=== PATIENT | female | born 1960 | race Caucasian/White ===

== ENCOUNTER → 2016-09-29 | Outpatient (REF) | payer OTHER ==
[2016-09-29 11:49] LABS: BASO % 0.3 % (0.0-1.0); EOS # 0.2 K/mm3 (0.0-0.50); EOS % 3.1 % (0.0-3.0); LARGE UNSTAINED CELL # 0.1 K/mm3 (0.0-0.4); LARGE UNSTAINED CELL % 2.2 % (0.0-4.0); LYMPH # 1.9 K/mm3 (1.5-4.5); LYMPH % 28.2 % (24.0-44.0); MEAN CORPUSCULAR HEMOGLOBIN 34.3 pg (27.0-33.0); MEAN CORPUSCULAR HGB CONC 35.2 g/dl (32.0-36.5); MEAN CORPUSCULAR VOLUME 97.4 fl (80.0-96.0); MONO # 0.5 K/mm3 (0.0-0.8); MONO % 7.1 % (0.0-5.0); NEUTROPHILS # 3.7 K/mm3 (1.8-7.7); NEUTROPHILS % 59.1 % (36.0-66.0); PLATELET COUNT, AUTOMATED 285 k/mm3 (150-450); RED CELL DISTRIBUTION WIDTH 12.2 % (11.5-14.5); WHITE BLOOD COUNT 6.3 K/mm3 (4.0-10.0)
[2016-09-29 11:51] LABS: TOTAL PROTEIN 7.3 GM/DL (6.4-8.2); VITAMIN B12 LEVEL 670 PG/ML (247-911)
[2016-09-29 12:06] LABS: ALBUMIN 3.5 GM/DL (3.2-5.2); ALBUMIN/GLOBULIN RATIO 0.95 (1.00-1.93); ALKALINE PHOSPHATASE 127 U/L (45-117); ALT/SGPT 27 U/L (12-78); ANION GAP 7 MEQ/L (8-16); AST/SGOT 17 U/L (15-37); BILIRUBIN,TOTAL 0.4 MG/DL (0.2-1.0); BLOOD UREA NITROGEN 17 MG/DL (7-18); CALCIUM LEVEL 9.5 MG/DL (8.5-10.1); CARBON DIOXIDE LEVEL 30 MEQ/L (21-32); CHLORIDE LEVEL 104 MEQ/L (98-107); CHOLESTEROL LEVEL 237 MG/DL (<200); CREATININE FOR GFR 0.66 MG/DL (0.55-1.02); GLOMERULAR FILTRATION RATE > 60.0 (>51); GLUCOSE, FASTING 95 MG/DL (70-105); POTASSIUM SERUM 3.8 MEQ/L (3.5-5.1); SODIUM LEVEL 141 MEQ/L (136-145); TOTAL PROTEIN 7.2 GM/DL (6.4-8.2); TRIGLYCERIDES LEVEL 132 MG/DL (<150)
[2016-10-02 09:52] LABS: ALBUMIN 4.26 GM/DL (3.29-5.55); ALBUMIN % 58.3 % (55.8-66.1); GAMMA GLOBULIN % 13.9 % (11.1-18.8)
== END ==
LOC: M SFHCCLAY 07:19
PROVIDERS: ATTEND Family Medicine
DX: I10 Essential (primary) hypertension (principal); D75.89 Other specified diseases of blood and blood-forming organs

== ENCOUNTER → 2017-01-26 | Outpatient (REF) | payer OTHER | LOC: M SFHCWAGY 15:10 | PROVIDERS: ATTEND Nurse Practitioner Women's Health | DX: Z12.4 Encounter for screening for malignant neoplasm of cervix (principal) ==

== ENCOUNTER → 2017-01-26 | Outpatient (CLI) | payer BC ==
--- NOTE | 2017-01-26 16:42 | REPMRS ---
Patient History The patient states she had a clinical breast exam in 01/28 Patient is postmenopausal and is nulliparous. Family history of prostate cancer in father at age 50 or over and breast cancer in mother at age 50 or over. Digital Woman Screen Mammo: January 26, 2017 - Exam #: [id number] Bilateral CC and MLO view(s) were taken. Technologist: Diamond Cam, Technologist Prior study comparison: January 26, 2016, digital woman screen mammo performed at [facility]. January 22, 2015, digital woman screen mammo performed at [facility]. FINDINGS: The breast tissue is heterogeneously dense. This may lower the sensitivity of mammography. There has been no change in the appearance of the mammogram from the prior studies. There is a moderate amount of residual fibroglandular tissue which is fairly symmetric. There is no interval development of dominant mass, areas of architectural distortion, or clustered microcalcification typical of malignancy. ASSESSMENT: BI-RADS/ACR category 1 mammogram. Negative. Recommendation Routine screening mammogram in 1 year (for women over age 40). This mammogram was interpreted with the aid of an FDA-approved computer-aided dectection system. Electronically Signed By: John Byers MD 01/26/17 [id number]
== END ==
LOC: M WHC 14:57
PROVIDERS: ATTEND Family Medicine
DX: Z12.31 Encounter for screening mammogram for malignant neoplasm of breast (principal)

== ENCOUNTER → 2017-02-14 | Outpatient (REF) | payer OTHER | LOC: M LAB REF 10:37 | DX: J02.9 Acute pharyngitis, unspecified (principal) | CPT/HCPCS: 87070 ==

== ENCOUNTER → 2017-03-30 | Outpatient (CLI) | payer OTHER ==
[2017-03-30 14:02] LABS: BASO % 0.3 % (0.0-1.0); EOS # 0.2 10^3/uL (0.0-0.50); EOS % 2.9 % (0.0-3.0); HEMATOCRIT 35.9 % (36.0-47.0); HEMOGLOBIN 12.2 g/dl (12.0-16.0); IMMATURE GRANULOCYTE % 0.3 % (0-3.0); LYMPH # 1.7 10^3/uL (1.5-4.5); LYMPH % 29.9 % (24.0-44.0); MEAN CORPUSCULAR HEMOGLOBIN 32.4 pg (27.0-33.0); MEAN CORPUSCULAR VOLUME 95.5 fl (80.0-96.0); MONO # 0.5 10^3/uL (0.0-0.8); MONO % 8.1 % (0.0-5.0); NEUTROPHILS # 3.4 10^3/uL (1.8-7.7); NEUTROPHILS % 58.5 % (36.0-66.0); PLATELET COUNT, AUTOMATED 329 10^3/uL (150-450); RED BLOOD COUNT 3.76 10^6/uL (4.00-5.40); RED CELL DISTRIBUTION WIDTH 12.5 % (11.5-14.5); WHITE BLOOD COUNT 5.8 10^3/uL (4.0-10.0)
[2017-03-30 14:08] LABS: APPEARANCE, URINE HAZY (CLEAR); BACTERIA, URINE AUTO NEGATIVE (NEGATIVE); BILIRUBIN, URINE AUTO NEGATIVE (NEGATIVE); BLOOD, URINE BLOOD NEGATIVE (NEGATIVE); COLOR, URINE YELLOW (YELLOW); GLUCOSE, URINE (UA) AUTO NEGATIVE (NEGATIVE); KETONE, URINE AUTO NEGATIVE (NEGATIVE); LEUKOCYTE ESTERASE, URINE AUTO NEGATIVE (NEGATIVE); MUCUS, URINE SMALL (NEGATIVE); NITRITE, URINE AUTO NEGATIVE (NEGATIVE); PROTEIN, URINE AUTO NEGATIVE (NEGATIVE); RBC, URINE AUTO 2 /HPF (0-3); SPECIFIC GRAVITY URINE AUTO 1.017 (1.002-1.035); SQUAMOUS EPITHELIAL CELL UR AU 2 /HPF (0-6); UROBILINOGEN, URINE AUTO 0.2 mg/dL (0.0-2.0); WBC, URINE AUTO 1 /HPF (0-3)
[2017-03-30 14:31] LABS: ALBUMIN 3.8 GM/DL (3.2-5.2); ALBUMIN/GLOBULIN RATIO 1.09 (1.00-1.93); ALKALINE PHOSPHATASE 101 U/L (45-117); ALT/SGPT 21 U/L (12-78); ANION GAP 8 MEQ/L (8-16); AST/SGOT 14 U/L (7-37); BILIRUBIN,TOTAL 0.5 MG/DL (0.2-1.0); BLOOD UREA NITROGEN 21 MG/DL (7-18); C REACTIVE PROTEIN QUANTITATIV 0.31 MG/DL (0.00-0.30); CALCIUM LEVEL 9.2 MG/DL (8.5-10.1); CARBON DIOXIDE LEVEL 28 MEQ/L (21-32); CHLORIDE LEVEL 102 MEQ/L (98-107); CHOLESTEROL LEVEL 214 MG/DL (<200); CHOLESTEROL RISK RATIO 3.194 (<5); CPK CREATINE PHOSPHOKINASE 49 U/L (26-192); CREATININE FOR GFR 0.62 MG/DL (0.55-1.30); GLOMERULAR FILTRATION RATE > 60.0 (>51); GLUCOSE, FASTING 82 MG/DL (70-100); HDL CHOLESTEROL 67 MG/DL (>40); LDL CHOLESTEROL 120.2 MG/DL (<100); NON-HDL-C 147 MG/DL; POTASSIUM SERUM 3.8 MEQ/L (3.5-5.1); SODIUM LEVEL 138 MEQ/L (136-145); TOTAL PROTEIN 7.3 GM/DL (6.4-8.2); TRIGLYCERIDES LEVEL 134 MG/DL (<150)
[2017-03-30 14:38] LABS: TOTAL 25(OH) VITAMIN D 38.4 NG/ML (30.0-100.0)
[2017-03-30 14:39] LABS: PTH INTACT 61.1 PG/ML (18.5-88.0)
[2017-03-30 14:44] LABS: ESTIMATED AVERAGE GLUCOSE 103 MG/DL (60-110); HEMOGLOBIN A1c 5.2 %
[2017-03-30 15:02] LABS: MALB URINE SIEMENS 7.3 MG/L; MAU/CREAT RATIO 3.9 MCG/MG (0.0-30.0)
== END ==
LOC: M WUC 10:26
DX: D75.89 Other specified diseases of blood and blood-forming organs (principal); E78.2 Mixed hyperlipidemia; E55.9 Vitamin D deficiency, unspecified; R73.01 Impaired fasting glucose

== ENCOUNTER → 2018-01-29 | Outpatient (REF) | payer OTHER | LOC: M SFHCWAGY 13:43 | PROVIDERS: ATTEND Nurse Practitioner Women's Health | DX: Z12.4 Encounter for screening for malignant neoplasm of cervix (principal) ==

== ENCOUNTER → 2018-01-29 | Outpatient (CLI) | payer BC ==
--- NOTE | 2018-01-29 14:30 | REPMRS ---
Patient History The patient states she had a clinical breast exam in 01/29 Family history of breast cancer at age 50 or over in mother, prostate cancer at age 50 or over in father. Digital Woman Screen Mammo: January 29, 2018 - Exam #: [id number] Bilateral CC and MLO view(s) were taken. Technologist: Diamond Cam, Technologist Prior study comparison: January 26, 2017, digital woman screen mammo performed at [facility]. January 26, 2016, digital woman screen mammo performed at [facility]. January 22, 2015, digital woman screen mammo performed at [facility]. FINDINGS: The breast tissue is heterogeneously dense. This may lower the sensitivity of mammography. There is a moderate amount of heterogeneously dense fibroglandular tissue which is fairly symmetric. There is no interval development of dominant mass, architectural distortion, or clustered microcalcification typical of malignancy. There has been no change in the appearance of the mammogram from the prior studies. 3-D tomosynthesis shows no additional findings. Assessment: BI-RADS/ACR category 1 mammogram. Negative. Recommendation Routine screening mammogram of both breasts in 1 year (for women over age 40). This patient's Lifetime Breast Cancer RIsk is estimated at 24.5%. Annual screening Breast MRI scanniing is recommended for patient's whose lifetime risk assessment is over 20%. This mammogram was interpreted with the aid of an FDA-approved computer-aided dectection system. Electronically Signed By: Jelani Santiago MD 01/29/18 [id number]
== END ==
LOC: M WHC 13:35
PROVIDERS: ATTEND Family Medicine
DX: Z12.31 Encounter for screening mammogram for malignant neoplasm of breast (principal); Z80.3 Family history of malignant neoplasm of breast; Z80.42 Family history of malignant neoplasm of prostate

== ENCOUNTER → 2018-03-02 | Outpatient (CLI) | payer OTHER ==
[2018-03-02 18:28] LABS: BASO % 0.6 % (0.0-1.0); EOS # 0.2 10^3/uL (0.0-0.50); EOS % 2.8 % (0.0-3.0); HEMATOCRIT 36.5 % (36.0-47.0); HEMOGLOBIN 12.5 g/dl (12.0-15.5); LYMPH # 1.6 10^3/uL (1.5-4.5); LYMPH % 30.2 % (24.0-44.0); MEAN CORPUSCULAR HEMOGLOBIN 33.6 pg (27.0-33.0); MEAN CORPUSCULAR HGB CONC 34.2 g/dl (32.0-36.5); MEAN CORPUSCULAR VOLUME 98.1 fl (80.0-96.0); MONO # 0.5 10^3/uL (0.0-0.8); NEUTROPHILS % 56.2 % (36.0-66.0); PLATELET COUNT, AUTOMATED 296 10^3/uL (150-450); RED BLOOD COUNT 3.72 10^6/uL (4.00-5.40); WHITE BLOOD COUNT 5.4 10^3/uL (4.0-10.0)
[2018-03-02 18:39] LABS: ALBUMIN 4.1 GM/DL (3.2-5.2); ALT/SGPT 23 U/L (12-78); BILIRUBIN,TOTAL 0.5 MG/DL (0.2-1.0); BLOOD UREA NITROGEN 19 MG/DL (7-18); CALCIUM LEVEL 10.1 MG/DL (8.5-10.1); CARBON DIOXIDE LEVEL 30 MEQ/L (21-32); CHLORIDE LEVEL 101 MEQ/L (98-107); CREATININE FOR GFR 0.77 MG/DL (0.55-1.30); GLOMERULAR FILTRATION RATE > 60.0 (>51); GLUCOSE, FASTING 90 MG/DL (70-100); POTASSIUM SERUM 3.8 MEQ/L (3.5-5.1); SODIUM LEVEL 138 MEQ/L (136-145); TOTAL PROTEIN 7.8 GM/DL (6.4-8.2)
[2018-03-04 11:10] LABS: PTH INTACT 36.2 PG/ML (18.5-88.0); TOTAL 25(OH) VITAMIN D 51.4 NG/ML (30.0-100.0)
== END ==
LOC: M WUC 09:16
PROVIDERS: ATTEND Family Medicine
DX: D75.89 Other specified diseases of blood and blood-forming organs (principal); E55.9 Vitamin D deficiency, unspecified; Z79.899 Other long term (current) drug therapy

== ENCOUNTER → 2018-09-06 | Outpatient (REF) | payer OTHER ==
[2018-09-06 12:54] LABS: ALBUMIN 4.1 GM/DL (3.2-5.2); ALT/SGPT 21 U/L (12-78); BILIRUBIN,TOTAL 0.7 MG/DL (0.2-1.0); BLOOD UREA NITROGEN 20 MG/DL (7-18); C REACTIVE PROTEIN QUANTITATIV < 0.30 MG/DL (0.00-0.30); CALCIUM LEVEL 10.3 MG/DL (8.5-10.1); CARBON DIOXIDE LEVEL 32 MEQ/L (21-32); CHLORIDE LEVEL 101 MEQ/L (98-107); CHOLESTEROL LEVEL 232 MG/DL (<200); CHOLESTEROL RISK RATIO 2.761 (<5); CPK CREATINE PHOSPHOKINASE 73 U/L (26-192); CREATININE FOR GFR 0.74 MG/DL (0.55-1.30); GLOMERULAR FILTRATION RATE > 60.0 (>51); GLUCOSE, FASTING 93 MG/DL (70-100); HDL CHOLESTEROL 84 MG/DL (>40); LDL CHOLESTEROL 127 MG/DL (<100); MAGNESIUM LEVEL 1.8 MG/DL (1.8-2.4); NON-HDL-C 148 MG/DL; POTASSIUM SERUM 4.1 MEQ/L (3.5-5.1); PTH INTACT 48.2 PG/ML (18.5-88.0); SODIUM LEVEL 139 MEQ/L (136-145); TOTAL 25(OH) VITAMIN D 50.9 NG/ML (30.0-100.0); TOTAL PROTEIN 7.5 GM/DL (6.4-8.2); TRIGLYCERIDES LEVEL 104 MG/DL (<150)
== END ==
LOC: M SFHCCLAY 07:25
PROVIDERS: ATTEND Family Medicine
DX: E78.2 Mixed hyperlipidemia (principal); I10 Essential (primary) hypertension; E55.9 Vitamin D deficiency, unspecified

== ENCOUNTER → 2019-01-30 | Outpatient (REF) | payer OTHER | LOC: M PLALAB 13:34 | PROVIDERS: ATTEND Nurse Practitioner Women's Health | DX: Z12.4 Encounter for screening for malignant neoplasm of cervix (principal); N95.2 Postmenopausal atrophic vaginitis ==

== ENCOUNTER → 2019-01-30 | Outpatient (CLI) | payer BC, OTHER ==
--- NOTE | 2019-01-30 14:42 | REPMRS ---
Patient History The patient states she had a clinical breast exam in January 2019.Family history of breast cancer at age 50 or over in mother, prostate cancer at age 50 or over in father. Digital Woman Screen Mammo: January 30, 2019 - Exam #: [id number] Bilateral CC and MLO view(s) were taken. Technologist: Liset Gama, Technologist Prior study comparison: January 29, 2018, bilateral digital woman screen mammo performed at [facility]. January 26, 2017, digital woman screen mammo performed at [facility]. January 26, 2016, digital woman screen mammo performed at [facility]. FINDINGS: The breast tissue is heterogeneously dense. This may lower the sensitivity of mammography. There is a moderate amount of heterogeneously dense fibroglandular tissue which is fairly symmetric. There is no interval development of dominant mass, architectural distortion, or grouped microcalcification typical of malignancy. There has been no change in the appearance of the mammogram from the prior studies. 3-D tomosynthesis shows no additional findings. Assessment: BI-RADS/ACR category 1 mammogram. Negative Mammogram. Recommendation Breast MRI of both breasts in 6 months. Routine screening mammogram of both breasts in 1 year (for women over age 40). This patient's Lifetime Breast Cancer RIsk is estimated at 23.8 %. Annual screening Breast MRI scanniing is recommended for patient's whose lifetime risk assessment is over 20%. This mammogram was interpreted with the aid of an FDA-approved computer-aided dectection system. Electronically Signed By: Jelani Santiago MD 01/30/19 [id number]
== END ==
LOC: M WHC 13:24
PROVIDERS: ATTEND Family Medicine
DX: Z12.31 Encounter for screening mammogram for malignant neoplasm of breast (principal); Z80.3 Family history of malignant neoplasm of breast

== ENCOUNTER → 2019-07-30 | Outpatient (CLI) | payer OTHER ==
[2019-07-30 10:11] LABS: ALBUMIN 3.8 GM/DL (3.2-5.2); ALT/SGPT 27 U/L (12-78); BILIRUBIN,TOTAL 0.6 MG/DL (0.2-1.0); BLOOD UREA NITROGEN 20 MG/DL (7-18); C REACTIVE PROTEIN QUANTITATIV < 0.30 MG/DL (0.00-0.30); CALCIUM LEVEL 9.5 MG/DL (8.8-10.2); CARBON DIOXIDE LEVEL 30 MEQ/L (21-32); CHLORIDE LEVEL 103 MEQ/L (98-107); CHOLESTEROL LEVEL 216 MG/DL (<200); CHOLESTEROL RISK RATIO 2.734 (<5); CREATININE FOR GFR 0.66 MG/DL (0.55-1.30); GLOMERULAR FILTRATION RATE > 60.0 (>45); GLUCOSE, FASTING 84 MG/DL (70-100); HDL CHOLESTEROL 79 MG/DL (>40); LDL CHOLESTEROL 117 MG/DL (<100); NON-HDL-C 137 MG/DL; POTASSIUM SERUM 3.8 MEQ/L (3.5-5.1); SODIUM LEVEL 140 MEQ/L (136-145); TOTAL PROTEIN 7.2 GM/DL (6.4-8.2); TRIGLYCERIDES LEVEL 98 MG/DL (<150)
[2019-07-30 10:18] LABS: PTH INTACT 47.6 PG/ML (18.5-88.0); TOTAL 25(OH) VITAMIN D 54.3 NG/ML (30.0-100.0)
== END ==
LOC: M WUC 08:08
PROVIDERS: ATTEND Family Medicine
DX: E55.9 Vitamin D deficiency, unspecified (principal); R73.01 Impaired fasting glucose

== ENCOUNTER → 2020-02-07 | Outpatient (CLI) | payer OTHER ==
[2020-02-07 15:35] LABS: BASO % 0.8 % (0.0-1.0); EOS # 0.3 10^3/uL (0.0-0.5); EOS % 5.1 % (0.0-3.0); HEMATOCRIT 36.1 % (36.0-47.0); HEMOGLOBIN 11.8 g/dl (12.0-15.5); LYMPH # 1.8 10^3/uL (1.5-5.0); LYMPH % 33.4 % (24.0-44.0); MEAN CORPUSCULAR HEMOGLOBIN 32.6 pg (27.0-33.0); MEAN CORPUSCULAR HGB CONC 32.7 g/dl (32.0-36.5); MEAN CORPUSCULAR VOLUME 99.7 fl (80.0-96.0); MONO # 0.5 10^3/uL (0.0-0.8); MONO % 9.4 % (0.0-5.0); NEUTROPHILS # 2.7 10^3/uL (1.5-8.5); NEUTROPHILS % 51.1 % (36.0-66.0); PLATELET COUNT, AUTOMATED 287 10^3/uL (150-450); RED BLOOD COUNT 3.62 10^6/uL (4.00-5.40); WHITE BLOOD COUNT 5.3 10^3/uL (4.0-10.0)
[2020-02-08 05:22] LABS: ALBUMIN 3.8 GM/DL (3.2-5.2); ALT/SGPT 20 U/L (12-78); BILIRUBIN,TOTAL 0.1 MG/DL (0.2-1.0); BLOOD UREA NITROGEN 19 MG/DL (7-18); CALCIUM LEVEL 9.3 MG/DL (8.8-10.2); CARBON DIOXIDE LEVEL 30 MEQ/L (21-32); CHLORIDE LEVEL 105 MEQ/L (98-107); CREATININE FOR GFR 0.69 MG/DL (0.55-1.30); GLOMERULAR FILTRATION RATE > 60.0 (>45); GLUCOSE, FASTING 78 MG/DL (70-100); MAGNESIUM LEVEL 1.6 MG/DL (1.8-2.4); POTASSIUM SERUM 3.9 MEQ/L (3.5-5.1); SODIUM LEVEL 141 MEQ/L (136-145)
[2020-02-09 10:08] LABS: VITAMIN B12 LEVEL 847 PG/ML (247-911)
== END ==
LOC: M WUC 08:21
PROVIDERS: ATTEND Family Medicine
DX: R73.01 Impaired fasting glucose (principal); D75.89 Other specified diseases of blood and blood-forming organs

== ENCOUNTER → 2020-03-22 | Outpatient (CLI) | payer BC, OTHER ==
--- NOTE | 2020-03-22 14:43 | REPMRS ---
Patient History The patient states she had a clinical breast exam in 2020. Family history of breast cancer at age 50 or over in mother, prostate cancer at age 50 or over in father. Digital Woman Screen Mammo: March 22, 2020 - Exam #: [id number] Bilateral CC and MLO view(s) were taken. Technologist: Sara Soto, Technologist Prior study comparison: January 30, 2019, bilateral digital woman screen mammo performed at [facility]. January 29, 2018, bilateral digital woman screen mammo performed at [facility]. January 26, 2017, digital woman screen mammo performed at [facility]. FINDINGS: The breast tissue is heterogeneously dense. This may lower the sensitivity of mammography. [facility]. There is a moderate amount of heterogeneously dense fibroglandular tissue which is fairly symmetric. There is no interval development of dominant mass, architectural distortion, or grouped microcalcification typical of malignancy. There has been no change in the appearance of the mammogram from the prior studies. 3-D tomosynthesis shows no additional findings. Assessment: BI-RADS/ACR category 1 mammogram. Negative Mammogram. Recommendation Breast MRI of both breasts in 6 months. Routine screening mammogram of both breasts in 1 year (for women over age 40). This patient's [facility] Lifetime Breast Cancer RIsk is estimated at 23.1 %. Annual screening Breast MRI scanniing is recommended for patient's whose lifetime risk assessment is over 20%. This mammogram was interpreted with the aid of an FDA-approved computer-aided dectection system. Electronically Signed By: Jelani Santiago MD 03/22/20 [id number]
== END ==
LOC: M WHC 12:57
PROVIDERS: ATTEND Nurse Practitioner Women's Health
DX: Z12.31 Encounter for screening mammogram for malignant neoplasm of breast (principal); Z80.3 Family history of malignant neoplasm of breast

== ENCOUNTER → 2020-03-22 | Outpatient (REF) | payer OTHER | LOC: M SFHCWAGY 17:20 | PROVIDERS: ATTEND Nurse Practitioner Women's Health | DX: Z12.4 Encounter for screening for malignant neoplasm of cervix (principal) ==

== ENCOUNTER → 2020-07-08 | Outpatient (CLI) | payer OTHER ==
[2020-07-08 11:40] LABS: HEMOGLOBIN A1c 4.8 %
[2020-07-08 11:53] LABS: ALBUMIN 3.8 GM/DL (3.2-5.2); ALT/SGPT 18 U/L (12-78); BILIRUBIN,TOTAL 0.6 MG/DL (0.2-1.0); BLOOD UREA NITROGEN 15 MG/DL (7-18); CALCIUM LEVEL 10.4 MG/DL (8.8-10.2); CARBON DIOXIDE LEVEL 33 MEQ/L (21-32); CHLORIDE LEVEL 104 MEQ/L (98-107); CHOLESTEROL LEVEL 216 MG/DL (<200); CHOLESTEROL RISK RATIO 2.634 (<5); CREATININE FOR GFR 0.64 MG/DL (0.55-1.30); FERRITIN 252 NG/ML (8-252); FREE T4 0.98 NG/DL (0.76-1.46); GLOMERULAR FILTRATION RATE > 60.0 (>45); GLUCOSE, FASTING 92 MG/DL (70-100); HDL CHOLESTEROL 82 MG/DL (>40); IRON (FE) 79 UG/DL (50-170); LDL CHOLESTEROL 116 MG/DL (<100); NON-HDL-C 134 MG/DL; PERCENT SATURATION 29.5 % (13.2-45.0); POTASSIUM SERUM 3.6 MEQ/L (3.5-5.1); PTH INTACT 39.2 PG/ML (18.5-88.0); SODIUM LEVEL 140 MEQ/L (136-145); THYROID STIMULATING HORMONE 0.931 uIU/ML (0.358-3.740); TOTAL 25(OH) VITAMIN D 48.9 NG/ML (30.0-100.0); TOTAL IRON BINDING CAPACITY 268 UG/DL (250-450); TOTAL PROTEIN 6.9 GM/DL (6.4-8.2); TRIGLYCERIDES LEVEL 90 MG/DL (<150)
== END ==
LOC: M WUC 08:06
PROVIDERS: ATTEND Family Medicine
DX: E55.9 Vitamin D deficiency, unspecified (principal); R73.01 Impaired fasting glucose; E78.2 Mixed hyperlipidemia; D75.89 Other specified diseases of blood and blood-forming organs; J30.89 Other allergic rhinitis

== ENCOUNTER → 2020-11-03 | Outpatient (CLI) | payer OTHER ==
[~2020-11-03] MED LIST: CHLO25TA PO; D31000TA2 PO; GOOD81CH2 PO; LISI20TA33 PO
== END ==
LOC: M LABSMTC 09:05
PROVIDERS: ATTEND Anesthesiology
DX: Z01.812 Encounter for preprocedural laboratory examination (principal); Z20.822 Contact with and (suspected) exposure to COVID-19

== ENCOUNTER 2020-11-08 07:04 | Day surgery (SDC) | payer BC, OTHER ==
[~2020-11-08] VITALS: Ht 160 cm; Wt 76.1 kg
[~2020-11-08 07:04] MED LIST changes: +NS 1,000 ML IV ONE
[2020-11-08] MEDS ORDERED: propofoL 200 MG/20 ML VIAL As Ordered ONE (08:17)
[2020-11-08] MEDS ORDERED: GLYCOPYRROLATE INJ 0.2 MG/ML 2 ML VIAL As Ordered ONE (08:24)
--- NOTE | 2020-11-08 08:35 | ROOR ---
Patient Name: Sabrina Aguilar Procedure Date: 11/08/2020 8:11 AM Date of : 1960 Age: 60 Room: [facility] Gender: Female Note Status: Finalized Procedure: Total Colonoscopy to Cecum Indications: Screening for colorectal malignant neoplasm Providers: Sammy Menjivar MD Referring MD: Adrián Stauffer MD Requesting Provider: Medicines: Monitored Anesthesia Care Complications: No immediate complications. Procedure: Pre-Anesthesia Assessment: - The heart rate, respiratory rate, oxygen saturations, blood pressure, adequacy of pulmonary ventilation, and response to care were monitored throughout the procedure. The Colonoscope was introduced through the anus and advanced to the cecum, identified by appendiceal orifice and ileocecal valve. The colonoscopy was performed without difficulty. The patient tolerated the procedure well. The quality of the bowel preparation was excellent. Findings: The perianal and digital rectal examinations were normal. Non-bleeding internal hemorrhoids were found during retroflexion. The hemorrhoids were small and Grade I (internal hemorrhoids that do not prolapse). No other significant abnormalities were identified in a careful examination of the remainder of the colon. The exam was otherwise without abnormality on direct and retroflexion views. Impression: - Non-bleeding internal hemorrhoids. - The examination was otherwise normal on direct and retroflexion views. - No specimens collected. - The exam was otherwise normal to the cecum. Recommendation: - Patient has a contact number available for emergencies. The signs and symptoms of potential delayed complications were discussed with the patient. Return to normal activities tomorrow. Written discharge instructions were provided to the patient. - High fiber diet. - Discharge patient to home. - Continue present medications. - Repeat colonoscopy in 10 years for screening purposes. - Return to referring physician. - The findings and recommendations were discussed with the patient. Procedure Code(s): --- Professional --- 83222, Colonoscopy, flexible; diagnostic, including collection of specimen(s) by brushing or washing, when performed (separate procedure) Diagnosis Code(s): --- Professional --- Z12.11, Encounter for screening for malignant neoplasm of colon K64.0, First degree hemorrhoids CPT copyright 2019 [employer]. All rights reserved. The codes documented in this report are preliminary and upon assembler dielectric heater review may be revised to meet current compliance requirements. Sammy Menjivar MD Sammy Menjivar MD 11/08/2020 8:35:03 AM Electronically signed by Sammy Menjivar MD Number of Addenda: 0 Note Initiated On: 11/08/2020 8:11 AM Estimated Blood Loss: Estimated blood loss: none.
[2020-11-08 08:51] VITALS: BP 92/50
== END 2020-11-08 08:53 | disposition home or self-care (01) ==
LOC: M OPP 07:04
PROVIDERS: ATTEND Internal Medicine Gastroenterology
DX: Z12.11 Encounter for screening for malignant neoplasm of colon (principal); K64.0 First degree hemorrhoids; Z79.82 Long term (current) use of aspirin; Z79.899 Other long term (current) drug therapy

== ENCOUNTER → 2020-12-23 | Outpatient (CLI) | payer BC, OTHER ==
[~2020-12-23] MED LIST changes: -NS 1,000 ML IV ONE
[2020-12-23 10:42] LABS: BASO % 0.7 % (0.0-1.0); EOS # 0.2 10^3/uL (0.0-0.5); EOS % 4.5 % (0.0-3.0); HEMATOCRIT 36.7 % (36.0-47.0); HEMOGLOBIN 12.4 g/dl (12.0-15.5); LYMPH # 1.7 10^3/uL (1.5-5.0); LYMPH % 32.5 % (24.0-44.0); MEAN CORPUSCULAR HEMOGLOBIN 33.2 pg (27.0-33.0); MEAN CORPUSCULAR HGB CONC 33.8 g/dl (32.0-36.5); MEAN CORPUSCULAR VOLUME 98.1 fl (80.0-96.0); MONO # 0.5 10^3/uL (0.0-0.8); MONO % 9.5 % (2.0-8.0); NEUTROPHILS # 2.8 10^3/uL (1.5-8.5); NEUTROPHILS % 52.6 % (36.0-66.0); PLATELET COUNT, AUTOMATED 287 10^3/uL (150-450); RED BLOOD COUNT 3.74 10^6/uL (4.00-5.40); WHITE BLOOD COUNT 5.4 10^3/uL (4.0-10.0)
[2020-12-23 10:58] LABS: ALBUMIN 3.8 GM/DL (3.2-5.2); BLOOD UREA NITROGEN 16 MG/DL (7-18); CALCIUM LEVEL 10.1 MG/DL (8.8-10.2); CARBON DIOXIDE LEVEL 31 MEQ/L (21-32); CHLORIDE LEVEL 104 MEQ/L (98-107); CREATININE FOR GFR 0.84 MG/DL (0.55-1.30); GLOMERULAR FILTRATION RATE > 60.0 (>45); GLUCOSE, FASTING 91 MG/DL (70-100); PHOSPHORUS LEVEL 3.4 MG/DL (2.5-4.9); POTASSIUM SERUM 4.4 MEQ/L (3.5-5.1); SODIUM LEVEL 138 MEQ/L (136-145); TOTAL PROTEIN 6.9 GM/DL (6.4-8.2)
[2020-12-23 13:05] LABS: TOTAL 25(OH) VITAMIN D 51.9 NG/ML (30.0-100.0)
[2020-12-23 13:07] LABS: PTH INTACT 50.1 PG/ML (18.5-88.0)
[2020-12-24 11:05] LABS: ALBUMIN 4.15 GM/DL (3.29-5.55); ALBUMIN % 60.1 % (55.8-66.1); ALPHA-1-GLOBULIN % 4.4 % (2.9-4.9); ALPHA-2-GLOBULINS 0.74 GM/DL (0.42-0.99); ALPHA-2-GLOBULINS % 10.7 % (7.1-11.8); BETA-1-GLOBULINS 0.41 GM/DL (0.28-0.60); BETA-1-GLOBULINS % 5.9 % (4.7-7.2); BETA-2-GLOBULINS % 5.8 % (3.2-6.5); GAMMA GLOBULIN % 13.1 % (11.1-18.8)
== END ==
LOC: M WUC 08:00
PROVIDERS: ATTEND Family Medicine
DX: E55.9 Vitamin D deficiency, unspecified (principal); D75.89 Other specified diseases of blood and blood-forming organs

== ENCOUNTER → 2021-01-12 | Outpatient (CLI) | payer BC, OTHER | LOC: M WHC 11:31 | PROVIDERS: ATTEND Family Medicine | DX: M85.80 Other specified disorders of bone density and structure, unspecified site (principal) ==

== ENCOUNTER → 2021-02-03 | Outpatient (CLI) | payer BC, OTHER ==
--- NOTE | 2021-02-04 06:13 | ECHO ---
ECHOCARDIOGRAM DATE OF PROCEDURE: 02/03/2021 Age: Gender: F Height: 157 cm Weight: 76 kg REFERRING PHYSICIAN: Dr. Adrián Stauffer INDICATION: Cardiac arrhythmias MEASUREMENTS: IVS: 0.8 LV: 4.5 LVPW: 0.8 LA: 3.6 Aorta: 2.4 Left atrial volume index: 36 Mitral E wave velocity is 77; A wave 50 E prime septal: 9.9 E prime lateral: 12.3 FINDINGS: This study is of acceptable technical quality. Underlying sinus rhythm with very frequent supraventricular ectopy. Left ventricle is normal size and has normal systolic function with estimated left ventricular ejection fraction (LVEF) 60% to 65%. Normal right ventricle (RV) size and systolic function. Mildly enlarged left atrium. Normal sized right atrium. Aortic valve appears minimally sclerotic but has normal mobility. Mitral and tricuspid valves appear normal. Pulmonic valve was not seen. No pericardial effusion is noted. Inferior vena cava is relatively small size and completely collapses with inspiration indicative of normal central venous pressure. Aortic root, aortic arch and visualized segment of abdominal aorta appear normal. Doppler interrogation reveals mild aortic insufficiency, mild mitral and trace tricuspid insufficiency. Mitral inflow pattern and tissue Doppler imaging of mitral annulus revealed normal diastolic function. CONCLUSIONS: 1. Study is of acceptable technical quality; underlying sinus rhythm with frequent supraventricular ectopy. 2. Normal left ventricle (LV) size with normal left ventricular (LV) systolic and diastolic function. 3. Normal right ventricle (RV) size and systolic function. 4. Mild aortic, mitral and tricuspid insufficiency. 5. Normal central venous pressure. 6. Unable to estimate pulmonary artery pressure.
== END ==
LOC: M CARPUL 09:15
PROVIDERS: ATTEND Family Medicine
DX: I49.8 Other specified cardiac arrhythmias (principal); I08.0 Rheumatic disorders of both mitral and aortic valves

== ENCOUNTER → 2021-07-05 | Outpatient (CLI) | payer BC, OTHER ==
[~2021-07-05] MED LIST changes: -D31000TA2 PO; +VITA100093 PO
== END ==
LOC: M WHC 13:03
PROVIDERS: ATTEND Obstetrics & Gynecology
DX: Z12.31 Encounter for screening mammogram for malignant neoplasm of breast (principal); Z80.3 Family history of malignant neoplasm of breast

== ENCOUNTER → 2021-10-27 | Outpatient (CLI) | payer BC, OTHER ==
[2021-10-27 10:36] LABS: BASO % 0.5 % (0.0-1.0); EOS # 0.1 10^3/uL (0.0-0.5); EOS % 2.3 % (0.0-3.0); HEMATOCRIT 36.3 % (36.0-47.0); HEMOGLOBIN 12.4 g/dl (12.0-15.5); LYMPH # 1.6 10^3/uL (1.5-5.0); LYMPH % 27.4 % (24.0-44.0); MEAN CORPUSCULAR HEMOGLOBIN 33.7 pg (27.0-33.0); MEAN CORPUSCULAR HGB CONC 34.2 g/dl (32.0-36.5); MEAN CORPUSCULAR VOLUME 98.6 fl (80.0-96.0); MONO # 0.6 10^3/uL (0.0-0.8); NEUTROPHILS # 3.3 10^3/uL (1.5-8.5); NEUTROPHILS % 58.3 % (36.0-66.0); PLATELET COUNT, AUTOMATED 269 10^3/uL (150-450); RED BLOOD COUNT 3.68 10^6/uL (4.00-5.40); WHITE BLOOD COUNT 5.7 10^3/uL (4.0-10.0)
[2021-10-27 11:27] LABS: ALBUMIN 3.8 GM/DL (3.2-5.2); BLOOD UREA NITROGEN 21 MG/DL (7-18); CALCIUM LEVEL 9.6 MG/DL (8.8-10.2); CARBON DIOXIDE LEVEL 29 MEQ/L (21-32); CHLORIDE LEVEL 102 MEQ/L (98-107); CHOLESTEROL LEVEL 231 MG/DL (<200); CHOLESTEROL RISK RATIO 2.783 (<5); CREATININE FOR GFR 0.74 MG/DL (0.55-1.30); FREE T4 1.07 NG/DL (0.76-1.46); GLOMERULAR FILTRATION RATE > 60.0 (>45); GLUCOSE, FASTING 88 MG/DL (70-100); HDL CHOLESTEROL 83 MG/DL (>40); LDL CHOLESTEROL 129 MG/DL (<100); NON-HDL-C 148 MG/DL; PHOSPHORUS LEVEL 2.9 MG/DL (2.5-4.9); POTASSIUM SERUM 3.9 MEQ/L (3.5-5.1); SODIUM LEVEL 137 MEQ/L (136-145); THYROID STIMULATING HORMONE 0.938 uIU/ML (0.358-3.740); TRIGLYCERIDES LEVEL 97 MG/DL (<150)
[2021-10-27 12:11] LABS: PTH INTACT 61.9 PG/ML (18.5-88.0)
== END ==
LOC: M WUC 08:32
PROVIDERS: ATTEND Family Medicine
DX: I10 Essential (primary) hypertension (principal); D75.89 Other specified diseases of blood and blood-forming organs; E78.2 Mixed hyperlipidemia

== ENCOUNTER → 2022-03-09 | Outpatient (CLI) | payer BC, OTHER ==
[~2022-03-09] MED LIST changes: -GOOD81CH2 PO; +RA A81CH3 PO
[2022-03-09 10:00] LABS: BASO % 0.5 % (0.0-1.0); EOS # 0.2 10^3/uL (0.0-0.5); EOS % 3.2 % (0.0-3.0); HEMATOCRIT 37.2 % (36.0-47.0); HEMOGLOBIN 12.7 g/dl (12.0-15.5); LYMPH # 1.9 10^3/uL (1.5-5.0); LYMPH % 33.5 % (24.0-44.0); MEAN CORPUSCULAR HEMOGLOBIN 33.5 pg (27.0-33.0); MEAN CORPUSCULAR HGB CONC 34.1 g/dl (32.0-36.5); MEAN CORPUSCULAR VOLUME 98.2 fl (80.0-96.0); MONO # 0.6 10^3/uL (0.0-0.8); MONO % 9.8 % (2.0-8.0); NEUTROPHILS % 52.8 % (36.0-66.0); PLATELET COUNT, AUTOMATED 318 10^3/uL (150-450); RED BLOOD COUNT 3.79 10^6/uL (4.00-5.40); WHITE BLOOD COUNT 5.7 10^3/uL (4.0-10.0)
[2022-03-09 10:11] LABS: HEMOGLOBIN A1c 4.9 % (4.0-6.0)
[2022-03-09 10:34] LABS: MAGNESIUM LEVEL 1.5 MG/DL (1.8-2.4)
[2022-03-09 10:36] LABS: ALKALINE PHOSPHATASE 94 U/L (46-116); ALT/SGPT 18 U/L (7.0-40); AST/SGOT 18 U/L (<34); BILIRUBIN,TOTAL 0.6 MG/DL (0.3-1.2); BLOOD UREA NITROGEN 19 MG/DL (9-23); CALCIUM LEVEL 10.1 MG/DL (8.3-10.6); CARBON DIOXIDE LEVEL 32 MMOL/L (20-31); CHLORIDE LEVEL 101 MMOL/L (98-107); CREATININE FOR GFR 0.78 MG/DL (0.55-1.30); GLOMERULAR FILTRATION RATE > 60.0 (>45); GLUCOSE, FASTING 89 MG/DL (74-106); POTASSIUM SERUM 4.2 MMOL/L (3.5-5.1); SODIUM LEVEL 139 MMOL/L (136-145); TOTAL PROTEIN 7.3 G/DL (5.7-8.2)
[2022-03-09 10:39] LABS: VITAMIN B12 LEVEL 424 PG/ML (211-911)
== END ==
LOC: M WUC 08:06
PROVIDERS: ATTEND Family Medicine
DX: I10 Essential (primary) hypertension (principal); R73.01 Impaired fasting glucose; D75.89 Other specified diseases of blood and blood-forming organs

== ENCOUNTER → 2022-07-24 | Outpatient (REF) | payer OTHER, BC | LOC: M SFHCWAGY 10:07 | PROVIDERS: ATTEND Obstetrics & Gynecology | DX: Z12.4 Encounter for screening for malignant neoplasm of cervix (principal); N95.2 Postmenopausal atrophic vaginitis | CPT/HCPCS: 87624; G0123 ==

== ENCOUNTER → 2022-07-24 | Outpatient (CLI) | payer BC, OTHER | LOC: M WHC 15:05 | PROVIDERS: ATTEND Family Medicine | DX: Z12.39 Encounter for other screening for malignant neoplasm of breast (principal) ==

== ENCOUNTER → 2022-08-09 | Outpatient (CLI) | payer BC, OTHER | LOC: M WHC 08:25 | PROVIDERS: ATTEND Family Medicine | DX: R92.2 Inconclusive mammogram (principal) ==

== ENCOUNTER → 2022-09-05 | Outpatient (CLI) | payer BC, OTHER ==
[~2022-09-05] MED LIST changes: +ALEN1TAB PO; +ASPI-663 PO; -RA A81CH3 PO
[2022-09-05 09:48] LABS: BASO % 0.7 % (0.0-1.0); EOS # 0.1 10^3/uL (0.0-0.5); EOS % 1.9 % (0.0-3.0); HEMATOCRIT 36.6 % (36.0-47.0); HEMOGLOBIN 12.3 g/dl (12.0-15.5); LYMPH # 1.7 10^3/uL (1.5-5.0); LYMPH % 28.8 % (24.0-44.0); MEAN CORPUSCULAR HEMOGLOBIN 32.5 pg (27.0-33.0); MEAN CORPUSCULAR HGB CONC 33.6 g/dl (32.0-36.5); MEAN CORPUSCULAR VOLUME 96.6 fl (80.0-96.0); MONO # 0.6 10^3/uL (0.0-0.8); MONO % 10.5 % (2.0-8.0); NEUTROPHILS # 3.3 10^3/uL (1.5-8.5); NEUTROPHILS % 57.8 % (36.0-66.0); PLATELET COUNT, AUTOMATED 281 10^3/uL (150-450); RED BLOOD COUNT 3.79 10^6/uL (4.00-5.40); WHITE BLOOD COUNT 5.7 10^3/uL (4.0-10.0)
[2022-09-05 10:12] LABS: ALBUMIN 3.8 G/DL (3.2-5.2); BLOOD UREA NITROGEN 18 MG/DL (9-23); CALCIUM LEVEL 9.5 MG/DL (8.3-10.6); CARBON DIOXIDE LEVEL 30 MMOL/L (20-31); CHLORIDE LEVEL 103 MMOL/L (98-107); CHOLESTEROL LEVEL 262 MG/DL (<200); CHOLESTEROL RISK RATIO 3.23 (<5); CREATININE FOR GFR 0.67 MG/DL (0.55-1.30); GLOMERULAR FILTRATION RATE > 60.0 (>45); GLUCOSE, FASTING 87 MG/DL (74-106); LDL CHOLESTEROL 159.4 MG/DL (<100); PHOSPHORUS LEVEL 3.3 MG/DL (2.4-5.1); POTASSIUM SERUM 3.4 MMOL/L (3.5-5.1); SODIUM LEVEL 139 MMOL/L (136-145); TRIGLYCERIDES LEVEL 108 MG/DL (<150)
[2022-09-05 10:14] LABS: FERRITIN 186.8 NG/ML (7.3-270.7); TOTAL 25(OH) VITAMIN D 40.9 NG/ML (20.0-100.0)
[2022-09-06 17:14] LABS: IMMUNOTYPING SERUM IGA SO 294 mg/dL (87-352); IMMUNOTYPING SERUM IGM SO 114 mg/dL (26-217)
== END ==
LOC: M WUC 08:02
PROVIDERS: ATTEND Family Medicine
DX: E55.9 Vitamin D deficiency, unspecified (principal); D75.89 Other specified diseases of blood and blood-forming organs; E78.2 Mixed hyperlipidemia

== ENCOUNTER → 2022-09-18 | Outpatient (REF) | payer OTHER | LOC: M SFHCPLAZ 12:54 | PROVIDERS: ATTEND Family Medicine | DX: Z53.9 Procedure and treatment not carried out, unspecified reason (principal) ==

== ENCOUNTER 2022-12-03 10:32 | Emergency (ER) | payer BC, OTHER ==
[~2022-12-03] VITALS: Ht 160 cm; Wt 76.4 kg
[2022-12-03] MEDS ORDERED: LIDOCAINE 5% (LIDODERM) PATCH TD ONE (12:15)
[2022-12-03] MEDS ORDERED: KETOROLAC 60MG 2ML VIAL IM ONE (12:15)
[2022-12-03] MEDS ORDERED: LIDO5DIS41 TOP (14:12)
[2022-12-03] MEDS ORDERED: KETO10TAB PO (14:12)
[2022-12-03 14:18] VITALS: BP 120/62; TEMP 99.1; O2SAT 100
== END 2022-12-03 14:21 | disposition home or self-care (01) ==
LOC: M ED 10:32
DX: S39.012A Strain of muscle, fascia and tendon of lower back, initial encounter (principal); I10 Essential (primary) hypertension; C50.919 Malignant neoplasm of unspecified site of unspecified female breast; F10.10 Alcohol abuse, uncomplicated; Z79.82 Long term (current) use of aspirin; Z79.811 Long term (current) use of aromatase inhibitors; Z79.899 Other long term (current) drug therapy; Y92.9 Unspecified place or not applicable; Y93.9 Activity, unspecified; Y99.9 Unspecified external cause status
CPT/HCPCS: 72072; 72110; 96372; 99283; J1885

== ENCOUNTER → 2023-02-28 | Outpatient (CLI) | payer BC, OTHER ==
[~2023-02-28] MED LIST changes: +KETO10TAB PO; +LIDO5DIS41 TOP
[2023-02-28 09:31] LABS: ALBUMIN 3.4 G/DL (3.2-5.2); ALKALINE PHOSPHATASE 74 U/L (46-116); ALT/SGPT 27 U/L (7.0-40); AST/SGOT 22 U/L (<34); BILIRUBIN,TOTAL 0.6 MG/DL (0.3-1.2); BLOOD UREA NITROGEN 17 MG/DL (9-23); CALCIUM LEVEL 8.9 MG/DL (8.3-10.6); CARBON DIOXIDE LEVEL 26 MMOL/L (20-31); CHLORIDE LEVEL 108 MMOL/L (98-107); CREATININE FOR GFR 0.55 MG/DL (0.55-1.30); GLOMERULAR FILTRATION RATE > 60.0 (>45); GLUCOSE, FASTING 85 MG/DL (74-106); POTASSIUM SERUM 3.4 MMOL/L (3.5-5.1); SODIUM LEVEL 142 MMOL/L (136-145)
== END ==
LOC: M LAB 08:37
PROVIDERS: ATTEND Internal Medicine
DX: C50.312 Malignant neoplasm of lower-inner quadrant of left female breast (principal)

== ENCOUNTER → 2023-03-09 | Outpatient (CLI) | payer BC, OTHER ==
[2023-03-09 11:04] LABS: BASO % 0.8 % (0.0-1.0); EOS # 0.1 10^3/uL (0.0-0.5); EOS % 2.4 % (0.0-3.0); HEMATOCRIT 28.5 % (36.0-47.0); HEMOGLOBIN 9.5 g/dl (12.0-15.5); LYMPH # 0.3 10^3/uL (1.5-5.0); MEAN CORPUSCULAR HEMOGLOBIN 33.8 pg (27.0-33.0); MEAN CORPUSCULAR HGB CONC 33.3 g/dl (32.0-36.5); MEAN CORPUSCULAR VOLUME 101.4 fl (80.0-96.0); MONO # 0.2 10^3/uL (0.0-0.8); MONO % 7.8 % (2.0-8.0); NEUTROPHILS % 77.2 % (36.0-66.0); PLATELET COUNT, AUTOMATED 268 10^3/uL (150-450); RED BLOOD COUNT 2.81 10^6/uL (4.00-5.40); WHITE BLOOD COUNT 2.6 10^3/uL (4.0-10.0)
[2023-03-09 11:32] LABS: ALBUMIN 3.5 G/DL (3.2-5.2); ALKALINE PHOSPHATASE 84 U/L (46-116); ALT/SGPT 19 U/L (7.0-40); AST/SGOT 18 U/L (<34); BILIRUBIN,TOTAL 0.9 MG/DL (0.3-1.2); BLOOD UREA NITROGEN 10 MG/DL (9-23); CALCIUM LEVEL 8.2 MG/DL (8.3-10.6); CARBON DIOXIDE LEVEL 25 MMOL/L (20-31); CHLORIDE LEVEL 106 MMOL/L (98-107); CHOLESTEROL LEVEL 201 MG/DL (<200); CHOLESTEROL RISK RATIO 3.89 (<5); CREATININE FOR GFR 0.52 MG/DL (0.55-1.30); GLOMERULAR FILTRATION RATE > 60.0 (>45); GLUCOSE, FASTING 96 MG/DL (74-106); HDL CHOLESTEROL 51.6 MG/DL (>40); LDL CHOLESTEROL 127.2 MG/DL (<100); MAGNESIUM LEVEL 1.2 MG/DL (1.8-2.4); NON-HDL-C 149.4 MG/DL; POTASSIUM SERUM 3.7 MMOL/L (3.5-5.1); PTH INTACT 128.1 PG/ML (18.5-88.0); SODIUM LEVEL 137 MMOL/L (136-145); TOTAL PROTEIN 6.3 G/DL (5.7-8.2); TRIGLYCERIDES LEVEL 111 MG/DL (<150)
== END ==
LOC: M WUC 08:29
PROVIDERS: ATTEND Family Medicine
DX: I10 Essential (primary) hypertension (principal); E55.9 Vitamin D deficiency, unspecified; D75.89 Other specified diseases of blood and blood-forming organs; E78.2 Mixed hyperlipidemia

== ENCOUNTER → 2023-04-12 | Outpatient (CLI) | payer BC ==
[~2023-04-12] MED LIST changes: +POTA-298 PO
== END ==
LOC: M ONCR 12:39
PROVIDERS: ATTEND General Practice
DX: C50.312 Malignant neoplasm of lower-inner quadrant of left female breast (principal); Z71.2 Person consulting for explanation of examination or test findings; Z79.82 Long term (current) use of aspirin; Z79.899 Other long term (current) drug therapy; Z80.3 Family history of malignant neoplasm of breast; Z80.42 Family history of malignant neoplasm of prostate; Z90.89 Acquired absence of other organs; Z92.21 Personal history of antineoplastic chemotherapy; Z98.890 Other specified postprocedural states

== ENCOUNTER → 2023-05-01 | Outpatient (CLI) | payer BC | LOC: M WHC 08:49 | PROVIDERS: ATTEND Family Medicine | DX: M85.89 Other specified disorders of bone density and structure, multiple sites (principal) ==

== ENCOUNTER 2023-05-11 09:24 | Outpatient (RCR) | payer BC | END 2023-05-13 | LOC: M ONCR 09:24 | PROVIDERS: ATTEND General Practice | DX: Z51.0 Encounter for antineoplastic radiation therapy (principal); C50.312 Malignant neoplasm of lower-inner quadrant of left female breast ==

== ENCOUNTER 2023-06-06 09:27 | Outpatient (RCR) | payer BC | END 2023-06-12 | LOC: M ONCR 09:27 | PROVIDERS: ATTEND General Practice | DX: Z51.0 Encounter for antineoplastic radiation therapy (principal); C50.312 Malignant neoplasm of lower-inner quadrant of left female breast ==

== ENCOUNTER → 2023-09-05 | Outpatient (CLI) | payer BC ==
[2023-09-05 10:32] LABS: BASO % 0.6 % (0.0-1.0); EOS # 0.2 10^3/uL (0.0-0.5); EOS % 3.7 % (0.0-3.0); HEMATOCRIT 36.3 % (36.0-47.0); HEMOGLOBIN 12.4 g/dl (12.0-15.5); LYMPH # 0.9 10^3/uL (1.5-5.0); LYMPH % 19.9 % (24.0-44.0); MEAN CORPUSCULAR HGB CONC 34.2 g/dl (32.0-36.5); MEAN CORPUSCULAR VOLUME 99.5 fl (80.0-96.0); MONO # 0.7 10^3/uL (0.0-0.8); MONO % 14.7 % (2.0-8.0); NEUTROPHILS # 2.8 10^3/uL (1.5-8.5); NEUTROPHILS % 60.9 % (36.0-66.0); PLATELET COUNT, AUTOMATED 275 10^3/uL (150-450); RED BLOOD COUNT 3.65 10^6/uL (4.00-5.40); WHITE BLOOD COUNT 4.6 10^3/uL (4.0-10.0)
[2023-09-05 11:01] LABS: ALBUMIN 3.9 G/DL (3.2-5.2); ALKALINE PHOSPHATASE 96 U/L (46-116); ALT/SGPT 26 U/L (7.0-40); AST/SGOT 21 U/L (<34); BILIRUBIN,TOTAL 0.8 MG/DL (0.3-1.2); BLOOD UREA NITROGEN 21 MG/DL (9-23); CALCIUM LEVEL 10.5 MG/DL (8.3-10.6); CARBON DIOXIDE LEVEL 29 MMOL/L (20-31); CHLORIDE LEVEL 106 MMOL/L (98-107); CREATININE FOR GFR 0.69 MG/DL (0.55-1.30); GLOMERULAR FILTRATION RATE > 60.0 (>45); GLUCOSE, FASTING 91 MG/DL (74-106); MAGNESIUM LEVEL 1.3 MG/DL (1.8-2.4); POTASSIUM SERUM 4.1 MMOL/L (3.5-5.1); PTH INTACT 67.1 PG/ML (18.5-88.0); SODIUM LEVEL 141 MMOL/L (136-145); TOTAL PROTEIN 6.9 G/DL (5.7-8.2)
[2023-09-05 11:03] LABS: FERRITIN 222.2 NG/ML (7.3-270.7); TOTAL 25(OH) VITAMIN D 55.5 NG/ML (20.0-100.0)
[2023-09-05 11:07] LABS: HEMOGLOBIN A1c 4.9 % (4.0-6.0)
== END ==
LOC: M WUC 08:28
PROVIDERS: ATTEND Family Medicine
DX: R73.01 Impaired fasting glucose (principal); E55.9 Vitamin D deficiency, unspecified; I10 Essential (primary) hypertension; D75.89 Other specified diseases of blood and blood-forming organs

== ENCOUNTER → 2023-09-06 | Outpatient (REF) | payer BC ==
[2023-09-11 13:01] LABS: HPV APTIMA Not Detected (Not Detected)
== END ==
LOC: M SFHCWAGY 14:51
PROVIDERS: ATTEND Obstetrics & Gynecology
DX: Z12.4 Encounter for screening for malignant neoplasm of cervix (principal); Z77.9 Other contact with and (suspected) exposures hazardous to health
CPT/HCPCS: 87624; G0123

== ENCOUNTER → 2023-09-20 | Outpatient (REF) | payer MEDICARE, BC | LOC: M SFHCPLAZ 10:39 | PROVIDERS: ATTEND Family Medicine | DX: I10 Essential (primary) hypertension (principal); D75.89 Other specified diseases of blood and blood-forming organs; E55.9 Vitamin D deficiency, unspecified; E78.2 Mixed hyperlipidemia ==

== ENCOUNTER → 2023-12-06 | Outpatient (CLI) | payer MEDICARE, OTHER | LOC: M ONCR 09:22 | PROVIDERS: ATTEND General Practice | DX: Z08 Encounter for follow-up examination after completed treatment for malignant neoplasm (principal); Z85.3 Personal history of malignant neoplasm of breast; Z79.811 Long term (current) use of aromatase inhibitors; Z87.891 Personal history of nicotine dependence; Z79.82 Long term (current) use of aspirin; Z79.899 Other long term (current) drug therapy; Z98.890 Other specified postprocedural states; Z92.21 Personal history of antineoplastic chemotherapy; Z92.3 Personal history of irradiation ==

== ENCOUNTER → 2024-03-12 | Outpatient (CLI) | payer MEDICARE, OTHER, BC ==
[2024-03-12 10:37] LABS: BASO % 0.9 % (0.0-1.0); EOS # 0.2 10^3/uL (0.0-0.5); EOS % 4.7 % (0.0-3.0); HEMATOCRIT 37.1 % (36.0-47.0); HEMOGLOBIN 12.8 g/dl (12.0-15.5); LYMPH # 1.1 10^3/uL (1.5-5.0); LYMPH % 24.1 % (24.0-44.0); MEAN CORPUSCULAR HEMOGLOBIN 34.4 pg (27.0-33.0); MEAN CORPUSCULAR HGB CONC 34.5 g/dl (32.0-36.5); MEAN CORPUSCULAR VOLUME 99.7 fl (80.0-96.0); MONO # 0.5 10^3/uL (0.0-0.8); MONO % 12.1 % (2.0-8.0); NEUTROPHILS # 2.6 10^3/uL (1.5-8.5); PLATELET COUNT, AUTOMATED 257 10^3/uL (150-450); RED BLOOD COUNT 3.72 10^6/uL (4.00-5.40); WHITE BLOOD COUNT 4.5 10^3/uL (4.0-10.0)
[2024-03-12 11:04] LABS: ALBUMIN 3.8 G/DL (3.2-5.2); ALKALINE PHOSPHATASE 98 U/L (35-104); ALT/SGPT 19 U/L (7.0-40); AST/SGOT 14 U/L (<34); BILIRUBIN,TOTAL 0.5 MG/DL (0.3-1.2); BLOOD UREA NITROGEN 17 MG/DL (9-23); CALCIUM LEVEL 10.4 MG/DL (8.3-10.6); CARBON DIOXIDE LEVEL 32 MMOL/L (20-31); CHLORIDE LEVEL 105 MMOL/L (98-107); CHOLESTEROL LEVEL 251 MG/DL (<200); CHOLESTEROL RISK RATIO 2.82 (<5); GLOMERULAR FILTRATION RATE > 60.0 (>45); GLUCOSE, FASTING 91 MG/DL (74-106); HDL CHOLESTEROL 88.8 MG/DL (>40); LDL CHOLESTEROL 140.2 MG/DL (<100); MAGNESIUM LEVEL 1.4 MG/DL (1.8-2.4); NON-HDL-C 162.2 MG/DL; POTASSIUM SERUM 4.3 MMOL/L (3.5-5.1); SODIUM LEVEL 143 MMOL/L (136-145); TOTAL PROTEIN 7.1 G/DL (5.7-8.2); TRIGLYCERIDES LEVEL 110 MG/DL (<150)
[2024-03-12 11:05] LABS: FREE T4 1.31 NG/DL (0.89-1.76)
[2024-03-12 11:06] LABS: THYROID STIMULATING HORMONE 1.541 uIU/ML (0.55-4.78); TOTAL 25(OH) VITAMIN D 53.9 NG/ML (20.0-100.0)
[2024-03-13 10:42] LABS: PROTEIN, TOTAL SO 7.1 g/dL (6.1-8.1)
== END ==
LOC: M WUC 08:11
PROVIDERS: ATTEND Family Medicine
DX: D75.89 Other specified diseases of blood and blood-forming organs (principal); I10 Essential (primary) hypertension; E78.2 Mixed hyperlipidemia; E55.9 Vitamin D deficiency, unspecified

== ENCOUNTER → 2024-06-05 | Outpatient (CLI) | payer BC, MEDICARE | LOC: M ONCR 09:25 | PROVIDERS: ATTEND General Practice | DX: Z08 Encounter for follow-up examination after completed treatment for malignant neoplasm (principal); Z85.3 Personal history of malignant neoplasm of breast; Z79.811 Long term (current) use of aromatase inhibitors; Z79.82 Long term (current) use of aspirin; Z79.899 Other long term (current) drug therapy; Z87.891 Personal history of nicotine dependence; Z98.890 Other specified postprocedural states; Z92.21 Personal history of antineoplastic chemotherapy; Z92.3 Personal history of irradiation ==

== ENCOUNTER → 2024-10-21 | Outpatient (REF) | payer MEDICARE, BC ==
[~2024-10-21] MED LIST changes: +LIDO1ADH93 TOP; -LIDO5DIS41 TOP
== END ==
LOC: M PLALAB 14:58
PROVIDERS: ATTEND Obstetrics & Gynecology
DX: Z12.4 Encounter for screening for malignant neoplasm of cervix (principal)

== ENCOUNTER → 2025-01-14 | Outpatient (CLI) | payer MEDICARE, BC ==
[2025-01-14 14:14] LABS: ALT/SGPT 15 U/L (7.0-40); AST/SGOT 17 U/L (<34); CALCIUM LEVEL 9.8 MG/DL (8.3-10.6); CARBON DIOXIDE LEVEL 32 MMOL/L (20-31); CHLORIDE LEVEL 103 MMOL/L (98-107); CHOLESTEROL LEVEL 242 MG/DL (<200); CHOLESTEROL RISK RATIO 2.70 (<5); CREATININE FOR GFR 0.64 MG/DL (0.55-1.30); GLOMERULAR FILTRATION RATE > 90.0 (>45); LDL CHOLESTEROL 133.4 MG/DL (<100); MAGNESIUM LEVEL 1.5 MG/DL (1.8-2.4); NON-HDL-C 152.4 MG/DL; POTASSIUM SERUM 3.9 MMOL/L (3.5-5.1); PTH INTACT 102.2 PG/ML (18.5-88.0); SODIUM LEVEL 144 MMOL/L (136-145); TRIGLYCERIDES LEVEL 95 MG/DL (<150)
[2025-01-14 14:15] LABS: BASO # 0.0 10^3/uL (0.0-0.2); BASO % 0.8 % (0.0-1.0); EOS # 0.2 10^3/uL (0.0-0.5); EOS % 3.6 % (0.0-3.0); LYMPH # 1.0 10^3/uL (1.5-5.0); LYMPH % 20.9 % (24.0-44.0); MONO # 0.6 10^3/uL (0.0-0.8); MONO % 11.8 % (2.0-8.0); NEUTROPHILS # 3.1 10^3/uL (1.5-8.5); NEUTROPHILS % 62.7 % (36.0-66.0); PLATELET COUNT, AUTOMATED 311 10^3/uL (150-450); TOTAL 25(OH) VITAMIN D 39.4 NG/ML (20.0-100.0)
[2025-01-14 14:16] LABS: FREE T4 1.29 NG/DL (0.89-1.76)
== END ==
LOC: M WUC 09:00
PROVIDERS: ATTEND Family Medicine
DX: D75.89 Other specified diseases of blood and blood-forming organs (principal); I10 Essential (primary) hypertension; E78.2 Mixed hyperlipidemia; E55.9 Vitamin D deficiency, unspecified